=== PATIENT | female | born 1980 | race Caucasian/White ===

== ENCOUNTER 2023-01-29 22:21 | Emergency (ER) | payer BC ==
[~2023-01-29] VITALS: Ht 165.1 cm; Wt 86.4 kg
[2023-01-29 22:30] VITALS: TEMP 97.9
[2023-01-29 23:53] VITALS: BP 124/81; PULSE 88
== END 2023-01-30 | disposition home or self-care (01) ==
LOC: COL.ER 22:21
DX: G43.909 Migraine, unspecified, not intractable, without status migrainosus (principal); J02.0 Streptococcal pharyngitis
CPT/HCPCS: J1200; J1885; J2765; J7030